=== PATIENT | female | born 1945 | race Caucasian/White ===

== ENCOUNTER 2021-03-08 16:48 | Emergency (ER) | payer OTHER, BC ==
[~2021-03-08] VITALS: Ht 157.5 cm; Wt 81.7 kg
[2021-03-09 04:37] VITALS: BP 136/82
== END 2021-03-09 04:37 ==
LOC: ER 16:48
PROVIDERS: Nurse Practitioner
DX: F91.9 Conduct disorder, unspecified (principal); Z20.822 Contact with and (suspected) exposure to COVID-19; Z88.2 Allergy status to sulfonamides; Z88.6 Allergy status to analgesic agent; Z88.5 Allergy status to narcotic agent; Z88.9 Allergy status to unspecified drugs, medicaments and biological substances

== ENCOUNTER 2021-03-09 04:40 | Inpatient (IN) | payer OTHER, BC ==
[~2021-03-09] VITALS: Ht 162.6 cm; Wt 74.8 kg
[2021-03-09 04:33] VITALS: BP 146/88
--- NOTE | 2021-03-09 07:03 | NUR ---
PATIENT WAS ADMITTED TO [facility] ON 03/09/21 AT 0433. PT WAS COOPERATIVE WITH ADMISISON PROCESS. PT SIGNED VOLUNTARY CONSENT TO TREATMENT AND FALL CONTRACT. PT STATED HER IN JULY. PT STATED SHE CONTRACTED COVID IN MARCH 2020 AND HAS HAD DEPRESSION AND ANXIETY SINCE. PT ENDORSED SI WITH NO PLAN. PT CONTRACTED FOR SAFETY WITH RN. PT DENIED HI AND AVH. PT STATED SHE IS NOT SURE WHEY SHE OVERDOSED AND STATES SHE ONLY TOOK A DOUBLE DOSE OF HER MEDICATION. PT AMBULATES WITH WALKER BUT IS WEAK. FALL PRECAUTIONS ARE IN PLACE. VITAL SIGNS OBTAINED; WITHIN NORMAL LIMITS. SKIN ASSESSMENT PERFORMED; PT HAD A "RED JEREMIE" REMOVED FROM HER LEFT EAR. NO PURULENT DRAINAGE FROM LEFT EAR; DRESSED WITH TAPE.
[2021-03-09 09:15] LABS: CHOLESTEROL 189 mg/dL (<200); HDL CHOLESTEROL 51 mg/dL (>40); LDL CHOLESTEROL 123 mg/dL (<100); TC:HDL 3.7 Ratio (Not establshd); TRIGLYCERIDE 76 mg/dL (<150); VLDL 15 mg/dL (<40)
--- NOTE | 2021-03-09 11:04 | NUR ---
New admit to [facility]: Pt transferred from [facility] for admit to [facility]. She is noted with hx anxiety and depression, HTN, GERD, hypothyroidism. She reports that her and her both had covid in Mar last year and that in July, her . Increased depression since. Not able to obtain weight hx d/t pt teary eyed at time of visit. 100% intake at [facility] this morning. Current BMI 39, obese class II. Follow weight and intake trends for nutrition intervention needs. Low nutrition risk at this time.
--- NOTE | 2021-03-09 12:42 | NUR ---
PATIENT HAS BEEN UP, AND OUT ON THE UNIT, AMBULATE WITH ASSIST OF ROLLER WALKER, GAIT SLIGHTLY UNSTEADY. PATIENT TOOK MORNING MEDICATION WHOLE WITHOUT DIFFICULTY, SHE IS EATING MEALS, AND DRINKING FLUID WELL. PATIENT DENIES SUICIDAL/HOMICIDAL IDEATION. SHE RATES DEPRESSION 07/21, "MY IN JULY". PATIENT ANXIETY IS "NOT THAT MUCH". SHE DENIES HAVING PHYSICAL PAIN AT THIS TIME. PATIENT WAS EMOTIONAL DURING 1:1 CONVERSATION. AFFECT IS SAD, MOOD IS DEPRESSION. NO SIGN OF ACUTE DISTRESS NOTED, WILL MONITOR FOR SAFETY.
[2021-03-09 19:39] VITALS: BP 146/88
[2021-03-09 19:46] VITALS: BP 111/54
[2021-03-09 19:46] LABS: FOLIC ACID 7.6 ng/mL (8.6-58.9)
--- NOTE | 2021-03-09 22:05 | NUR ---
PATIENT RESTING IN HER ROOM. SHE CAME OUT AMBULATING WELL WITH HER WALKER. NOTED THAT PATIENT HAS SOME BRUISING TO HER FACE FROM A FALL PRIOR TO ADMISSION. SHE DENIES PAIN OR NEEDS. STATES THAT SHE IS DOING OKAY TONIGHT. WENT INTO THE COMMON AREA FOR A FEW MINUTES THEN RETURNED TO BED. NO S/S OF DISTRESS NOTED. VSS. WILL CONTIUE TO [facility] FOR CHANGES IN STATUS.
[2021-03-10 02:06] LABS: GLYCOHEMOGLOBIN (HGB A1C) 5.6 % (4.8-5.6)
[2021-03-10 09:09] VITALS: BP 140/81
[2021-03-10 10:52] VITALS: BP 140/81
--- NOTE | 2021-03-10 14:26 | NUR ---
Took over care from hourly shift staff this am. Client was present in room sitting on bed. Client expressed that she wanted to go home, and expressed that she thought her doctor told her that she could go home this weekend. Nursing informed client that discharges did not happen on weekends and that only provider could discharge client. Client denies any si/hi/hallucinations at this time. Mild anxiety expressed. Alert and oriented x3. Bowel sounds normal. Lung sounds clear bilaterally.
--- NOTE | 2021-03-10 16:47 | NUR ---
CHELO and Dr. Eldridge met with the Pt. Pt denied SI/HI. SW asked Pt about her concerns with going home. Pt stated she was aware that she would not go home today. Pt asked if SW called her daughter, Mihaela, today. SW explained that we planned to call Mihaela during this meeting. Dr. Eldridge called Mihaela on speaker phone. After Dr. Eldridge annouced who was in the room Mihaela begin to yell very loudly "I was told my mother would be there for 10 day no visits no phone calls and you are saying she can leave". Pt tried to calm Mihaela down. Mihaela yelled at the Pt, " No Fuck you Mom!" and continued to berate and cuss out CHELO and Dr. Santiago. Dr. Eldridge calmly explained that the phone call would be ended due to the language and yelling. Also that if it continued we could not include her in the Pt's treatment while on the unit. Mihaela yells, " I have anxiety and I don't want to be apart of her treatment anymore!". Phone call was ended. CHELO completed debriefing with the Pt and offered emotional support. CHELO will continue to follow.
[2021-03-10 19:17] VITALS: BP 152/78
--- NOTE | 2021-03-10 22:26 | H ---
[facility] [place] [address] HISTORY AND PHYSICAL Name: TRANG WILLIS Room #: 521A-A ADM IN M.R.#: [id number] Admission: 03/09/21 Attend Phys: Miller López DO Discharge: Date of : 49 Report #: [id number] THIS REPORT FOR: cc: Melia Gutierrez MD, Emily G. MD Kerstein,Miller Gan DO ~ DATE OF SERVICE: 03/09/2021 INPATIENT PSYCHIATRIC EVALUATION ATTENDING PSYCHIATRIST: Miller López DO SUPERVISING EDITOR NEWS REEL: TERRI Morales and Adin Colon MD and his hospitalist team. SOURCES OF INFORMATION: Records from [facility]; interview with the patient; collateral from her daughter, Mihaela Morgan, at [phone]. REASON FOR ADMISSION: Overdose on 53 Seroquel, 30 Xanax, [facility] CHIEF COMPLAINT: "I want to sign out." HISTORY OF PRESENT ILLNESS: This is a 75-year-old obese female. The patient was [facility] on [facility], [facility] Apparently, the patient had been diagnosed with depression, on no medication and had been hospitalized in 05/2020 for suicidal ideation, though she denied this. Per the ER record, the patient was sleepy and she reported depression and overwhelmed feelings with no hopeless or helpless feelings. She has poor motivation and insight and she has poor sleep and appetite. The patient denies any active suicidal or homicidal ideation; however, she was intentionally overdosed with Xanax, Tylenol, lisinopril, and Seroquel. The patient took all her medication overnight. She was found by her caregiver the next day in the morning. The patient has been depressed for a long time; however, depression has been getting worse in the last year and a half after she got COVID and her . The patient denied any manic or psychotic features. She lives alone with in-home caregiver. ALLERGIES: PROCHLORPERAZINE, DROPERIDOL, FLAGYL, MORPHINE SULFATE, SULFAMETHOXAZOLE, TORADOL, AND SULFA DRUGS LABORATORY DATA FROM [facility]: White count 5.85, hemoglobin 14.8, hematocrit 45, platelet count 149. Sodium 141, potassium 4.3, chloride 110, bicarbonate 24, BUN 18, creatinine 0.6, calcium 9.2, total serum protein 5.8, alkaline phosphatase 56, ALT 16, AST 24, glucose 79. [address] [address] HISTORY AND PHYSICAL Name: TRANG WILLIS Room #: 521A-A [facility] IN M.R.#: [id number] Admission: 03/09/21 Attend Phys: Miller López DO Discharge: Date of : 49 Report #: [id number] SOCIAL HISTORY: The patient is . She was from her first 2 husbands. No smoking. No vaping. No alcohol. No drug use history. She has difficulty paying living expenses, food insecurity, worried about running out of food in last year. Actually, I do not think those were responded to those last few items. Diagnosed with major depressive disorder, severe degree, seen by Dr. Skinny Desai. Additional information from [facility]; she took 53, 25 mg Seroquel and 30, 0.5 mg Xanax last night around 19:30, so that would be on 03/05. She arrived to the ER 15-1/2 hours later. SURGICAL HISTORY: Dilation and curettage of uterus, gallbladder surgery, hysterectomy, tubal ligation. MEDICAL HISTORY: Includes essential hypertension, GERD, hyponatremia, likely SIADH, hypothyroidism. She was somnolent and difficult to arouse at [facility]. EKG showed QTc 474, QT 436. OR interval 156, nonspecific ST and T-wave changes, normal sinus rhythm. Labs showed SARS-CoV-2 negative. TSH 0.91, sodium 141, potassium 4.1, chloride 110, bicarbonate 24, anion gap 8, calcium 9.7, glucose 79, total protein 5.8, BUN 18, creatinine 0.6. White blood cell count 5.05, H and H 14.8 and 45, platelet count 149. UDS was positive for benzodiazepines. Sodium 138, potassium 4.3, chloride 105, bicarbonate 25, calcium 9.3, glucose 90, alkaline phosphatase 57, ALT 18, AST 26. CURRENT MEDICATIONS: In the hospital, MiraLax 17 grams daily, lactulose 20 mg daily, mirtazapine was started at 22.5 mg at bedtime, melatonin 6 mg at bedtime for sleep, losartan 50 mg oral daily for hypertension, Protonix 40 mg oral daily for GERD, levothyroxine 75 mcg oral daily, otherwise house PRNs. LABORATORY DATA: Today, triglycerides 76, cholesterol 199, LDL 123, HDL 51. COVID-19 PCR here was again not detected. PHYSICAL EXAMINATION: VITAL SIGNS: Today, temperature 36.9, pulse 82, respirations 17, BP 146/88, O2 sat 96%. BMI 39. Weight 96.6 kilos, height 155.48 cm. MUSCULOSKELETAL: Ambulates with walker, a bit kyphotic. MENTAL STATUS EXAMINATION: This is a somewhat ill-appearing female. Attention fair. Concentration fair. Speech normal in rate, volume, and tone. Thought process linear and goal directed. Thought content focused on ameliorating her situation. Denied suicidal intent or plan. Denied homicidal intent or plan. Some helplessness. Some hopelessness. Memory not formally tested. Insight and judgment were limited. Fund of knowledge is average. [facility] [address] [place] [address] HISTORY AND PHYSICAL Name: TRANG WILLIS Room #: 521A-A ADM IN .R.#: [id number] Admission: 03/09/21 Attend Phys: Miller López DO Discharge: Date of : 49 Report #: [id number] Some additional notes; she has an associate's degree from [employer]. Born and raised in [place], [place]. Her cheondoism is [facility]. her primary care physician is who treats her psychiatric issues. FORMULATION: A 75-year-old female, admitted status post intentional overdose to end her life. The patient has had a difficult year or so including of her , multiple hospitalizations, sequela from COVID. She appears to be a long hauler. PLAN: The patient is admitted voluntarily to [facility]. Evaluate, stabilize, obtain collateral. Regarding next steps for this patient, she will need to complete the milieu therapy. I think she would be a reasonable candidate for a PHP program. I discussed this with her. We will get her going on mirtazapine, which has been successful in the past I explained of, Xanax due to the overdose potential. Time spent on this case approximately 60-70 minutes, greater than 50% of the time spent in review of records and coordination of care. STRENGTHS: She is insured, some family support. WEAKNESSES: Poor coping skills, multiple morbidities. <ELECTRONICALLY SIGNED> By: Miller López DO 03/10/21 [id number] Miller López DO /nt
--- NOTE | 2021-03-11 03:37 | NUR ---
PATIENT HAS HAS SEVERAL COMPLAINTS DURING THIS SHIFT. STATES THAT IS VANN WHEN SHE URINATES AND HAS NOT HAD A BM X3 DAYS. SHE WAS GIVEN MIRILAX TO SEE IF IT HELPS. THIS AM WHEN LAB ROUNDED SHE STATED THAT HE TRIED TO HURT HER BY PUTTING THE TOURNIQUET ON HER ARM. SHE STATES THAT HE DID THIS 4 TIMES AND THEN TOLD HER TO SHUT UP. NONE OF THESE ACTIONS WERE HEARD AND THE TECH APOLOGIZED FOR THE TOURNIQUET. AFTER THIS INCIDENT SHE THEN COMPLAINED THAT THE GUNNER'S MATE G KEPT OPENING HER DOOR. RN EXPLAINED THAT THEY HAVE TO BE OBSERVED EVERY 12 MINUTES FOR SAFETY. SHE STATED THAT HER DOOR HAS BEEN SHUT ALL NIGHT. PATIENT IRRITABILITY HAS BEEN STEADILY INCREASING DURING THIS SHIFT. SHE WAS UPSET PREVIOUSLY BECAUSE SHE STATES THAT HER DAUGHTER TOLD HER THAT SHE WAS FINISHED AND DID NOT WANT ANYTHING TO DO WITH HER ANY LONGER. SHE WAS TEARFUL AND STATED THAT SHE WILL BE 76 NEXT WEEK IF SHE DOES NOT .
[2021-03-11 09:05] VITALS: BP 158/91
[2021-03-11 11:32] VITALS: BP 158/91
--- NOTE | 2021-03-11 12:25 | NUR ---
RESUMMED CARE FROM OVERNIGHT SHIFT THIS AM, PATIENT IN ROOM LYING QUIET. PATIENT TOOK MEDICATION ATE SMALL AMOUNT OF BREAKFAST, PATIENTS AFFECT FLAT. PATIENT DENIES SI/HI/AH/VH AT PRESENT. PATIENTS ABDOMEN SOFT BOWEL SOUNDS PRESENT PATIENTS LUNGS CLEAR. PATIENT IS WORRIED THAT HER DAUGHTER WILL NOT BE ABLE TO HELP HER AT HOME. PATIENT THIS AM COMPLAINED OF NAUSEA AND UPSET STOMACH. PATIENT GIVEN ZOFRAN 4 MG AND SPRITE PATIENT CAME OUT OF ROOM AND WAS WALKING THE HALLS FOR EXERCISE. PATIENT HAS NOT DISPLAYED ANY BEHAVIORS WILL CONTINUE TO MONITOR PATIENT FOR SAFETY AND BEHAVIORS.
[2021-03-11 17:15] LABS: URINE BILIRUBIN NEGATIVE (Negative); URINE BLOOD TRACE (Negative); URINE COLOR YELLOW; URINE GLUCOSE-RANDOM* NEGATIVE (Negative); URINE KETONES 1+ (Negative); URINE PROTEIN (DIPSTICK) NEGATIVE (Negative); URINE UROBILINOGEN 0.2 E.U./dl (0.2-1.0)
[2021-03-11 17:33] LABS: URINE LEUKOCYTES-REFLEX 2+ (Negative); URINE NITRITE-REFLEX POSITIVE (Negative)
[2021-03-11 17:34] LABS: URINE CLARITY HAZY
[2021-03-11 17:41] LABS: BACTERIA-REFLEX >30 Many /HPF (None Seen); SQUAMOUS 4-10 Moderate /LPF (0-3); URINE RBC 1-2 Rare /HPF (NONE SEEN)
[2021-03-11 17:42] LABS: CASTS None Seen /LPF (None Seen); CRYSTALS None Seen /LPF (None Seen)
--- NOTE | 2021-03-11 17:51 | NUR ---
CHELO was able to speak with the Pt daughter, Philly [phone]. Philly did state she was not listed on the Pt's DPOA, However Philly was able to offer her concerns about the Pt. Philly stated that the Pt has been hospitalized prior and when discharged Pt refuses mental health services. Pt wont leave her home until she has an appointment. Pt has in home aides 8 hours a day 5 days a week. Pt dosent do well when left alone a home. Pt's anxiety increases and Pt makes sucidal statements. This has increase since the passing of the Pt's . The family has tried to work with Pt on getting into a half-way however Pt refuses to go. Philly had no other questions or concerns at this time. CHELO will continue to follow
[2021-03-11 19:30] VITALS: BP 138/62
--- NOTE | 2021-03-12 02:11 | NUR ---
PATIENT RATES HER DEPRESSION A 7/10 AND HER ANXIETY A 3/10 BUT DENIES SI/HI. ABOUT A YEAR AGO AND PATIENT HAS BEEN IN AND OUT OF HOSPITALS FOR VARIOUS MEDICAL REASONS AND SHE FEELS THAT IT HAS BEEN VERY STRESSFUL. PATIENT GIVEN PRN VISTRAIL 25MG FOR ANXIETY HS AND ZOFRAN LATER FOR NAUSEA. PATIENT AMBULATES WITH WALKER, IS CONTINENT OF BOWEL AND BLADDER.
--- NOTE | 2021-03-12 09:10 | NUR ---
Resummed care from overnight staff this am. Pt was sitting in her room, stating that she was nauseous. Pt was positioned in side laying position, and encouraged to eat bland foods as pt had been given prn zofran earlier in the am. Pt oriented 4x. Pt denies si/hi/hallucinations at this time. Lung sounds clear. Bowel sounds were normal and present. No further concerns at this time. Will continue to monitor for patient care and safety.
[2021-03-12 09:25] VITALS: BP 141/69
[2021-03-12 10:05] VITALS: BP 141/69
--- NOTE | 2021-03-12 12:52 | NUR ---
PT has been complaining of backpain during this shift in addition to her nausea. Pt was given tylenol to help with backpain, but states that the tylenol wore off and that it is no longer helpful. As of 12:51pm, pt stated, "this is worse than labor pains, because at least labor pains end." Nursing requested lidocaine patch from rounding provider to help alleviate pt pain. Pt is currently in bed with two side rails up for safety.
--- NOTE | 2021-03-12 12:58 | NUR ---
Pt called for nursing again at 12:58pm. Nursing informed pt that nursing was still waiting on any additional orders provider would give. Pt stated "why don't you just shot me." Nursing reassured pt during this time; no suicidal intent was found.
--- NOTE | 2021-03-12 16:13 | NUR ---
Pt called nursing at 3:28pm, stating that her back hurt. Pt stated that it hurt to move around in bed. Repositioning was done to help alleviate pain at this time. Pt has already received tylenol prn, and new order for tylenol 1000mg was entered after approval by provider. Pt stated that she felt like she should move, but didn't want to. Pt was encouraged to rest at this time. No further discomfort noted.
[2021-03-12 19:28] VITALS: BP 165/86
--- NOTE | 2021-03-13 02:47 | NUR ---
PATIENT REMAINS SOMATIC AND MEDICATION SEEKING AND HAS BEEN UP AND DOWN ALL NIGHT. PATIENT IS MEDICATION COMPLIANT, ALERT AND ORIENTED X 4, AMBULATES WITH WALKER. PATIENT REMAINS DEPRESSED WITH ANXIETY, DENIES SI/HI.
--- NOTE | 2021-03-13 15:34 | NUR ---
Check in with pt. during group (Protective Factors). Pt. was in a pleasant mood. Pt. identified several protective factors including a supportive family consisting of her two daughters and their children. The pt. has a positive self esteem which she expressed obtaininig through working and raising her children. This has given her a sense of accomplishment. The pt's children also serves as the pt's sense of purpose. The pt. did identify difficulty in healthy thinking. She stated that she could sometimes be hard on herself. The pt. is looking forward to discharging home. She states that she has caregivers in the home; however, they will not be present in the home all day. The pt. is looking forward to living as independent of a lifestyle that she can.
--- NOTE | 2021-03-13 16:34 | NUR ---
PT ALERT AND ORIENTED TIMES FOUR. VSS. PT C/O PAIN AND ANXIETY BOTH PRN MEDICATIONS GIVEN WITH GOOD RELEIF. PT DENIES SI/HI. PT OBSERVED HAVING AH/VH STATES SHE HEARS AND SEES "PEOPLE FROM THE RADIO STATION SINGING AND DANCING IN MY ROOM" PT DID ATTEND GROUPS THIS SHIFT, AND INTERACTS WELL WITH STAFF AND PEERS. WILL CONTINUE TO MONITOR.
[2021-03-13 19:30] VITALS: BP 135/73
[2021-03-13 19:35] VITALS: BP 135/73
--- NOTE | 2021-03-14 02:52 | NUR ---
PATIENT CARE WAS RESUMED AT 1900. SHE IS ALERT AND ORIENTED AMBULATES WITH WALKER. SHE IS ABLE TO VERBALIZE HER CONCERNS. LUNGS ARE CLEAR, BS ACTIVE X4 QUADS. SHE DENIES PAINS/SI/HI. SHE SAID THAT MUSIC IS PLAYING IN HER ROOM.SHE TOOK HER PILLS WHOLE.C/O NAUSEA AND PRN ZOFRAN GIVE WITH SOME GOOD EFFECT. Q 12MINUTES CHECK IS ONGOING. BED IS LOW AND LOCKED,CONTINUE TO MONITOR
[2021-03-14 09:37] VITALS: BP 151/90
[2021-03-14 11:54] VITALS: BP 151/90
--- NOTE | 2021-03-14 12:54 | NUR ---
RESUMMED CARE FROM OVERNIGHT SHIFT THIS AM, PATIENT IN ROOM ASKING FOR ANXIETY MEDICATION. PATIENT IS VERY SOMATIC AND CONSTANTLY ASKING FOR PAIN OR ANXIETY MEDICATION. PATIENT ALERT ORIENTED TIMES 4 PATIENT DENIES SI/AH/VH; SHE STATES ANXIETY 7 AND DEPRESSION A 7. PATIENTS ABDOMEN SOFT BOWEL SOUNDS PRESENT. PATIENT STATES LUNGS CLEAR PATIENT PARTICIPATES IN GROUP, I HAD TO TALK WITH PATIENT AND EXPLAIN TO HER SHE NEEDS TO WALK MORE. PATIENT COMPLAINS OF BACK PAIN BUT WANTS TO LIE DOWN ALL THE TIME. WILL CONTINUE TO MONITOR PATIENT FOR SAFETY AND BEHAVIORS.
[2021-03-14 20:18] VITALS: BP 151/82
--- NOTE | 2021-03-15 04:17 | NUR ---
PATIENT HAS BEEN A/0X3. SHE HAS BEEN UP WITH A WALKER. SHE DENIED PAIN EARLY ON IN THE SHIFT BUT ONCE GOING TO BED SHE C/0 OF NAUSEA. ZOFRAN 4MG GIVEN PO. SHE ALSO WANTED MED FOR ANXIETY SO PRN GIVEN FOR THIS TOO WITH HS MEDS. PATIENT SLEEPS IN BED BY THE WINDOW. SHE WENT ON TO TELL ME THAT SHE AND HER ROOM MATE HEAR BEPOP MUSIC COMING THRU THE REGISTER VENT. ROOM MATE STATES SHE ONLY HEARS IT WHEN SHE'S CLOSE TO THE WINDOW. PATIENT WAS COLD SO TURNED HEAT UP IN ROOM. PATIENT LATER WENT INTO ANOTHER PATIENT'S ROOM AND GOT INTO THE EXTRA BED. SHE SAID THE BE BOP MUSIC WAS BOTHERING HER. WHEN CLAIMS ANALYST HAD HER MOVE BACK TO HER ROOM THEN PATIENT AND ROOM MATE TRADED BEDS. WHEN I ASKED PATIENT WHY SHE WAS NOT IN HER BED SHE STATES THAT IT WASN'T COMFORTABLE SO THEY TRADED. PATIENT BECAME NAUSEOUS AGAIN AND ANXIOUS AT 0315. PATIENT STATES STOMACH IS GURGLING AND HURTS. EXPLAINED I COULD GIVE HER MYLANTA BUT I COULD NOT GIVE HER MORE ZOFRAN UNTIL 5AM. SHE REFUSED MYLANTA. PATIENT HAD BM YESTERDAY. PLACED WARM MOIST HEATED TOWELS OVER PATIENT ABDOMEN FOR COMFORT. I LOOKED THRU PT CHART NOTICED THAT DR UMANA HAD ORDERED A URINE TAXI DANCER ON 03/11/21 AND IT WAS POSITIVE AND CULTURE SHOWED ECOLI GROWTH. IT HAD NOT BEEN TREATED. I CALLED TONYA MACDONALD AND ASKED HER TO DOUBLE CHECK BUT I DID NOT SEE WHERE SHE HAD BEEN TREATED FOR UTI YET. SHE LOOKED AND PUT NEW ORDER IN FOR CEPHALEXIN 500MG PO QID. PATIENT AWAITING 5AM TO HAVE ZOFRAN AND WILL SEE ABOUT GETTING 1ST DOSE OF CEPHALEXIN TO HER ALSO. PATIENT C/O HANDS ACHING FROM ARTHRITIS AND EARS RINGING. SHE KEEPS ADDING MORE SYMPTOMS OF DISCOMFORT. PATIENT VERY FUSSY AND RESTLESS. HAS NOT SLEPT MUCH AT ALL TONIGHT. PT IS UP WITH WALKER AND STEADY ON FEET LOW FALL RISK. SHE DENIES SI/HI BUT DOES HAVE AUDITORY HALLUCINATIONS. BED IN LOW POSITION. PATIENT ROUNDS TO ASSESS PATIENT STATUS AND SAFETY. YELLS AND SCREAMS IF BED ALARM PUT ON AND INSIST IT NOT BE ON. CONTINUING TO MONITOR.
--- NOTE | 2021-03-15 06:25 | NUR ---
PATIENT GIVEN MED FOR ANXIETY PRN, ZOFRAN PO, CEPHALEXIN 500MG, AND TYLENOL 1000MG SHE REQUESTED AND HER AM MEDS AT 0530. PATIENT ASSISTED TO BATHROOM. PATIENT BECOMING FUSSIER AND CRYING OUT FOR NURSE. SHE MIMICS EVERYTHING HER ROOM MATE DOES. IF ROOM MATE ASKS FOR TYLENOL THEN SHE NEEDS TYLENOL. SHE WAS UPSET BECAUSE HER HOB WAS NOT ELEVATED LIKE HER ROOM MATES. I RAISED IT FOR HER AND ASKED IF SHE WAS COMFORTABLE WITH IT THERE. SHE TURNED HER HEAD TOWARD ROOM MATE BED AND ASKED "IS IT AT SAME LEVEL HERS, I WANT IT THE SAME HERS." I SAID IT IS BUT I WANT TO MAKE SURE IT'S COMFORTABLE FOR YOU. SHE SAID IT WAS. PATIENT THEN STARTED CRYING OUT. "I'M SCARED, I'M SCARED. I DON'T KNOW WHAT I AM TO BE DOING." SHE STARTED HYPERVENTILATING. I HAD HER TAKE SOME SLOW DEEP BREATHS AND TO PICTURE A HAPPY PLACE IN HER MIND. SHE KEPT CALLING OUT I'M SCARED AND HYPERVENTILATING. I THEN TOLD HER I HAD ALREADY GIVEN HER ANXIETY MED 45 MINUTES AGO. SHE SUDDENLY BREATHED NORMAL AND SAID IN A NORMAL VOICE, "OH YOU DID?" AND CALMED DOWN. HER COMPLAINTS PHYSICALLY KEEP MOUNTING. SHE ADDS MORE COMPLAINTS HER ROOM MATE DOES AND/OR IF ANXIETY INCREASES. SHE HAS TALKED TO HER ROOM MATE ALL EVENING AND HAS ONLY HAD 2.8 HOURS OF SLEEP. PLACED BED ALARM WITHOUT HER NOTICE AND BED IN LOW POSITION. TOLD HER SHE NEEDED TO LAY STILL AND LET HER MEDS WORK AND REST.
[2021-03-15 09:25] VITALS: BP 146/66
--- NOTE | 2021-03-15 14:11 | NUR ---
Assumed pt care at 0700. Pt was alert and oriented x4. Assessments completed, vss. Lungs clear, active bowel sound. Denies si/hi, denies pain. Calm and cooperative with care. Took meds whole with thin liquid, no difficulty noted. AmBUlates with a walker. PRN Zofran administered for nausea. Pt was irritable upon assessments. Continent of bowel and bladder. Makes needs known to staff. Participated in afternoon group. At this time pt is in the her room resting. Will continue to monitor.
--- NOTE | 2021-03-15 17:29 | NUR ---
CHELO met with Pt. SW talked to Pt about the suicide prevention program through [facility]. Pt still continues to be intrested and willing to participate in the program. Pt states she feels ready for discharge. Pt continues to deny SI/HI, AH/VH. CHELO was able to fax a referral to suicide prevention program at [facility].
[2021-03-15 19:42] VITALS: BP 139/77
[2021-03-15 20:30] VITALS: BP 139/77
--- NOTE | 2021-03-16 03:20 | NUR ---
PATIENT AWOKE AT 0300 WITH C/0 OF LOW BACK PAIN WHERE HER HERNIATED DISC ARE. ASSISTED PATIENT WITH WALKER TO TOILET TO VOID AND THEN GAVE HER TYLENOL 100OMG PO. HELPED HER GET COMFORTABLE IN BED. HARD FOR PATIENT TO RELAX D/T TIGHTNESS IN THE BACK AND SHE IS BECOMING MORE ANXIOUS. HYDROXAZINE PRN GIVEN FOR ANXIETY. AWAITING CALL BACK FROM DR ONEIL TO SEE IF WE CAN GET A MUSCLE RELAXER FOR HER OR SOMETHING STRONGER FOR PAIN.
--- NOTE | 2021-03-16 04:31 | NUR ---
RECEIVED ORDER FROM DR ONEIL FOR FLEXERIL 10MG PO ONE TIME FOR PATIENT BACK PAIN AND TIGHTNESS FROM BULDGING DISCS IN HER LOWER BACK. PATIENT GIVEN MED AND REPOSITIONED IN BED FOR COMFORT. PATIENT HAD PARTIAL PAIN RELIEF FROM TYLENOL 1000MG AND WENT FROM A 9 DOWN TO A 5 OUT OF 10. PATIENT EDUCATED ON FLEXERIL THAT IT CAN CAUSE DROWSINESS AND INCREASE CHANCE OF FALLING AND TO WAIT FOR HELP IF NEEDS TO GET UP. PT BACK TO RESTING.
[2021-03-16 09:38] VITALS: BP 147/74
--- NOTE | 2021-03-16 12:23 | NUR ---
RT Progress Note- Heather has been an active participant in both the milieu and recreation therapy groups since her admission. She has progressively grown more upbeat in tone and mood during discussions. She recognizes signs of depression and is able to identify ways that she can cope with symptoms. She has not displayed behavioral outbursts or problems during interactions with RT staff and has been cooperative throughout her stay. CLOTHING EXAMINER will continue to encourage patient's participation.
--- NOTE | 2021-03-16 17:11 | NUR ---
PT ALERT AND ORIENTED TIMES FOUR. VSS. PT C/O PAIN AND ANXIETY BOTH PRN MEDICATIONS GIVEN WITH GOOD RELEIF. PT DENIES SI/HI/AH/VH. PT ATTENED GROUPS, INTERACTS WELL WITH STAFF AND PEERS. PT TOLERATES MEDS AND MEALS. PT UP WALING AROUND THE UNIT WITH WALKER STEADY GAIT. PT PROGRESSING TOWRADS POC GOALS.
--- NOTE | 2021-03-16 18:47 | NUR ---
Spoke with Pt concerning discharge. Pt informed that her home health workers could pick her up and transport her home. Pt was excited about being discharged due to her birthday being the day of discharge. CHELO was siddhartha to speak with Sugar at [facility]. Sugar confirmed she can have staff picked the Pt up at discharge. Discharge set for 03/17/2021 @ 1500. CHELO contacted [place] and informed of the Pt's discharge.
--- NOTE | 2021-03-16 18:50 | NUR ---
CHELO spoke with Feliberto Bowman at [facility], . Feliberto confirmed recieving the referral. Feliberto stated they would call the Pt the day of discharge however would not be able to start CM services until the following week. CHELO will provide Pt contact information for [facility] Suicide program at discharge.
[2021-03-16 19:31] VITALS: BP 130/75
--- NOTE | 2021-03-17 02:57 | NUR ---
ASSUMED CARE ON 03/16/21 @ 1900, COOPERATIVE WITH CARE, PLEASANT AFFECT NOTED.A&OX4 TYLENOL 1000 PROVIDED FOR BACK PAIN @ 2100 AND 0300. AMBULATES WITH A STEADY GAIT WITH A WALKER. WILL CONTINUE TO MONITOR FOR SAFETY AND COMFORT PER UNIT PROTOCOL.
[2021-03-17 09:50] VITALS: BP 144/73
[2021-03-17 10:16] VITALS: BP 144/73
--- NOTE | 2021-03-17 10:43 | NUR ---
PATIENT CARE RESUMMED AT 0700. PATIENT IS A&O*4, LUNG SOUNDS CLEAR, ABDOMEN SOFT UPON PALPATION, WITH BOWEL SOUNDS PRESENT. PATIENT DENIED BEING DEPRESSED BUT STATED SHE WAS ANXIOUS. PATIENT RATED HER ANXIETY AN 8 ON A SCALE OF 0-10. PATIENT ALSO STATED SHE WAS HAVING SOME PAIN IN HER BACK STATING IT WAS AN 8 ON A SCALE ON 0-10. PATIENT STATED SHE WAS ANXIOUS BECAUSE OF BEING DISCHARGED TODAY. PATIENT STATED THOUGH SHE IS ANXIOUS SHE IS EXCITED. PATIENT DENIES SI/HI/AH/VH. PATIENT STATED SHE HAD A BOWEL MOVEMENT THIS MORNING WHEN SHE WOKE UP, THUS DENYING WANTING HER LAXATIVE THIS MORNING. PATIENT DID INFORM NURSING SHE WAS NO LONGER HAVING PAIN/DISCOMFORT UPON URINIATION. FALL PREVENTIONS ARE IN PLACE. WILL CONTINUE TO MONITOR PATIENT FOR BEHAVIORS AND SAFETY.
[2021-03-17] MEDS ORDERED: COZAAR 50 MG TA50 M1 PO (11:05)
[2021-03-17] MEDS ORDERED: Cephalexin 500 MG Ca PO (11:05)
[2021-03-17] MEDS ORDERED: REMERON 30 MG T30 M1 PO (11:05)
[2021-03-17] MEDS ORDERED: LACTULOSE20 GM/30 M PO (11:06)
[2021-03-17] MEDS ORDERED: PROTONIX40 M2 PO (11:07)
[2021-03-17] MEDS ORDERED: TIROSINT75 MCG PO (11:08)
[2021-03-17] MEDS ORDERED: FOLIC ACID1 MG PO (11:09)
[2021-03-17] MEDS ORDERED: B-12500 MCG PO (11:09)
[2021-03-17 11:24] VITALS: BP 144/73
--- NOTE | 2021-03-17 11:40 | NUR ---
NURSING EDUCATION PROVIDED TO PATIENT POST DISCHARGE BY NURSING STAFF AT 1115. PATIENT UNDERSTOOD AND TAUGHT BACK INFORMATION. PATIENT SIGNED DISCHARGE PAPERWORK AND IS AWAITING RIDE. PATIENT BEING DISCHARGE TO HER HOME, MEDICATIONS HAVE BEEN SENT OUT TO [facility].
--- NOTE | 2021-03-20 20:20 | D ---
[facility] [place] [address] DISCHARGE SUMMARY Name: TRANG WILLIS Room #: [facility] M.R.#: [id number] Admission: 03/09/21 Attend Phys: Miller López DO Discharge: 03/17/21 Date of : 49 Report #: [id number] THIS REPORT FOR: cc: Melia Gutierrez MD, Emily G. MD Kerstein,Miller Gan DO ~ DATE OF SERVICE: 03/17/2021 INPATIENT PSYCHIATRIC DISCHARGE SUMMARY ATTENDING PSYCHIATRIST: Miller López DO SPINE SPECIALIST: Adin Colon MD DISCHARGE DIAGNOSES: Major depressive disorder, single episode, recurrent, severe degree. MEDICAL COMORBIDITIES: As follows, hypertension, stable, status post thyroidectomy, on levothyroxine, status post COVID pneumonitis in 03/2020. Also, urinary tract infection. Culture done on 03/11, ____ 03/13 grew E. coli, on cephalexin. The patient is discharging to her home. Aftercare set up by marriage and family social worker rediscovered. We will hold patient the day of discharge, would not be able to set case mgrtire care manager until the following week. Referral made for suicide prevention program. [facility] is involved with this patient for home care. DIET AT DISCHARGE: Regular. ACTIVITY LEVEL: As tolerated. No alcohol, no illicit drugs. The patient was given crisis suicide hotline information. Return to care as well for SI, HI, chest pain, fever, swelling, edema and trouble breathing. DISCHARGE MEDICATIONS: Cephalexin 500 mg oral twice daily, 15 more doses; Losartan 50 mg oral daily for hypertension, Rx given for #30; Mirtazipine 30 mg oral at bedtime, Rx given for #30; lactulose 20 grams oral daily for bowel motility; pantoprazole 40 mg oral daily for GERD; levothyroxine 75 mcg oral daily for thyroid replacement; vitamin B12 of 1000 mcg oral daily for supplementation; folic acid 1 mg oral daily for supplementation. DISCHARGE LABORATORY DATA: This admission COVID-19 serology was not detected on 03/11-03/13. Urine had numerous positives and as stated with E. coli on culture. Other laboratories: Hemoglobin A1c was 5.6. B12 of 166, which is low. Folate 7.6, which is low. TSH 2.082. Total cholesterol 180, LDL 123, HDL 51. [address] [address] DISCHARGE SUMMARY Name: TRANG WILLIS Room #: [facility]#: [id number] Admission: 03/09/21 Attend Phys: Miller López DO Discharge: 03/17/21 Date of : 49 Report #: [id number] REASON FOR ADMISSION: Back at the end of February, 76-year-old female sent to us from [facility]. She was intentionally overdosed on 53 Seroquel and 30 Xanax, admitted on 03/06. HOSPITAL COURSE: The patient was admitted to Geriatric Psychiatry Unit. The patient was started on mirtazapine due to success from previous trial. I started at 22.5 mg and then increased to 30 mg. During the course of admission, the patient's affect brightened. Her daughter became supportive by end of her stay. She participated in activities. No restraints were required this admission. At time of discharge patient was stable for step-down. VITAL SIGNS: Temperature afebrile, pulse 71, respirations 18, BP 144/70, O2 sat 94%. MUSCULOSKELETAL: Assisted gait with walker, wearing glasses, good dressed. MENTAL STATUS EXAMINATION: Well-developed, age-appearing female. Attention fair. Concentration fair. Speech normal in rate, amount and tone. Thought process: Linear and goal directed. Thought content: Focused on discharge. Denied suicidal or homicidal ideation, auditory, visual, or tactile hallucinations. Mood was good and affect was congruent, euthymic. States she feels like she is improved this admission. Memory not formally tested. Insight fair, judgment fair. Fund of knowledge average range. Prognosis for this patient is fair. She continues in psychiatric treatment and continues with home support services. She also will need to keep up socialization. <ELECTRONICALLY SIGNED> By: Miller López DO 03/20/212019 45 55 Miller López DO /nt
== END 2021-03-17 12:00 | disposition home or self-care (01) | DRG 885 ==
LOC: SBH 04:40
PROVIDERS: Psychiatry & Neurology Psychiatry; ADMIT Psychiatry & Neurology Psychiatry; ATTEND Psychiatry & Neurology Psychiatry
DX: F33.2 Major depressive disorder, recurrent severe without psychotic features (principal); I10 Essential (primary) hypertension; K21.9 Gastro-esophageal reflux disease without esophagitis; F41.9 Anxiety disorder, unspecified; Z60.2 Problems related to living alone; E89.0 Postprocedural hypothyroidism; E53.8 Deficiency of other specified B group vitamins; Z20.822 Contact with and (suspected) exposure to COVID-19; Z86.16 Personal history of COVID-19; Z88.6 Allergy status to analgesic agent; Z88.2 Allergy status to sulfonamides; Z88.8 Allergy status to other drugs, medicaments and biological substances; Z90.710 Acquired absence of both cervix and uterus; Z79.899 Other long term (current) drug therapy; Z23 Encounter for immunization
CPT/HCPCS: 10880